=== PATIENT | female | born 1960 | race African-American/Black ===

== ENCOUNTER 2022-11-25 11:56 | Emergency (ER) | payer SELFPAY ==
[~2022-11-25] VITALS: Ht 165.1 cm; Wt 95.0 kg
[2022-11-25 12:01] VITALS: BP 163/91
[2022-11-25 15:29] LABS: BASOPHILS % 0.6 % (0.0-2.0); EOSINOPHILS % 2.4 % (0.0-5.0); HEMATOCRIT. 45.3 % (36.0-48.0); HEMOGLOBIN. 15.7 g/dL (12.0-16.0); LYMPHOCYTES % 29.8 % (20.0-50.0); MEAN CORPUSCULAR HEMOGLOBIN 29.4 pg (28.0-32.0); MEAN CORPUSCULAR VOLUME 84.8 fL (81.0-99.0); MEAN PLATELET VOLUME 9.6 fl (7.4-10.4); MONOCYTES % 7.1 % (2.0-8.0); NEUTROPHILS % 60.1 % (40.0-76.0); PLATELET 234 x1000/uL (130-400); RED BLOOD CELL COUNT 5.34 mill/uL (4.2-5.4); RED CELL DISTRIBUTION WIDTH 14.1 % (11.6-14.6)
[2022-11-25 15:36] LABS: CHLORIDE 102 mEq/L (98-107)
[2022-11-25 15:38] LABS: PROTHROMBIN TIME 10.4 sec (9.6-11.0)
[2022-11-25 15:45] LABS: BETA HYDROXYBUTYRATE 0.1 mMol/L (0.0-0.3); ETHANOL BLOOD < 10 mg/dL
== END 2022-11-25 17:40 | disposition left against medical advice (07) ==
LOC: ER 12:37
DX: Z53.21 Procedure and treatment not carried out due to patient leaving prior to being seen by health care provider (principal)
CPT/HCPCS: 36415; 71045; 80053; 80320; 82010; 82962; 85025; 99281; G0480

== ENCOUNTER → 2025-01-01 | Emergency (ER) | payer MEDICAID ==
[~2025-01-01] VITALS: Ht 165.1 cm; Wt 82.3 kg
[2025-01-02 00:08] VITALS: O2SAT 99
[2025-01-02 00:11] VITALS: BP 127/97; PULSE 80; RESP 18; TEMP 36.5; O2SAT 99
== END ==
LOC: ER 23:34
DX: R07.89 Other chest pain (principal); Z53.21 Procedure and treatment not carried out due to patient leaving prior to being seen by health care provider